=== PATIENT | male | born 1960 | race Caucasian/White ===

== ENCOUNTER 2019-12-29 19:56 | Emergency (ER) | payer OTHER ==
[~2019-12-29] VITALS: Ht 182.9 cm; Wt 89.6 kg
[2019-12-29] MEDS ORDERED: LAMO100T3 PO (20:13)
[2019-12-29 22:15] LABS: BASO % 0.2 % (0.0-1.0); EOS # 0.3 10^3/uL (0.0-0.5); EOS % 3.2 % (0.0-3.0); HEMATOCRIT 48.1 % (42.0-52.0); HEMOGLOBIN 16.1 g/dl (13.5-17.5); LYMPH # 2.1 10^3/uL (1.5-5.0); MEAN CORPUSCULAR HEMOGLOBIN 29.7 pg (27.0-33.0); MEAN CORPUSCULAR HGB CONC 33.5 g/dl (32.0-36.5); MEAN CORPUSCULAR VOLUME 88.6 fl (80.0-96.0); MONO # 0.5 10^3/uL (0.0-0.8); MONO % 6.2 % (0.0-5.0); NEUTROPHILS # 5.5 10^3/uL (1.5-8.5); PLATELET COUNT, AUTOMATED 255 10^3/uL (150-450); RED BLOOD COUNT 5.43 10^6/uL (4.30-6.10); WHITE BLOOD COUNT 8.4 10^3/uL (4.0-10.0)
[2019-12-29 22:37] LABS: ALBUMIN 3.9 GM/DL (3.2-5.2); ALT/SGPT 27 U/L (12-78); BILIRUBIN,DIRECT 0.3 MG/DL (0.0-0.2); BILIRUBIN,TOTAL 0.8 MG/DL (0.2-1.0); BLOOD UREA NITROGEN 15 MG/DL (7-18); CALCIUM LEVEL 9.4 MG/DL (8.8-10.2); CARBON DIOXIDE LEVEL 29 MEQ/L (21-32); CHLORIDE LEVEL 105 MEQ/L (98-107); CREATININE FOR GFR 1.28 MG/DL (0.70-1.30); GLOMERULAR FILTRATION RATE > 60.0 (>49); GLUCOSE, FASTING 104 MG/DL (70-100); LIPASE 207 U/L (73-393); POTASSIUM SERUM 4.7 MEQ/L (3.5-5.1); SODIUM LEVEL 141 MEQ/L (136-145); TOTAL PROTEIN 7.3 GM/DL (6.4-8.2)
[2019-12-29] MEDS ORDERED: ISOVUE-370 76% 100ML VIAL As Ordered ONE (23:53)
--- NOTE | 2019-12-30 00:50 | REPVR ---
PROCEDURE INFORMATION: Exam: CT Abdomen And Pelvis With Contrast Exam date and time: 12/29/2019 11:33 PM Age: 59 years old Clinical indication: Abdominal pain; Generalized; Prior surgery; Surgery date: 6+ months; Surgery type: Nephrectomy; Patient HX: HX renal cell; Additional info: Abd pain, n/v/d TECHNIQUE: Imaging protocol: Computed tomography of the abdomen and pelvis with intravenous contrast. Radiation optimization: All CT scans at this facility use at least one of these dose optimization techniques: automated exposure control; mA and/or kV adjustment per patient size (includes targeted exams where dose is matched to clinical indication); or iterative reconstruction. Contrast material: ISO; Contrast volume: 100 ml; Contrast route: INTRAVENOUS (IV); COMPARISON: No relevant prior studies available. FINDINGS: Lungs: Bibasilar atelectasis. Liver: Mild diffuse fatty infiltration of liver. Gallbladder and bile ducts: Tiny gallstones. No ductal dilatation. No pericholecystic fluid. Pancreas: Normal. No ductal dilation. Spleen: Splenic granulomas. Adrenals: Normal. No mass. Kidneys and ureters: Status post left nephrectomy. No residual tissue is seen in the left renal fossa. Right kidney is unremarkable. Stomach and bowel: Diverticulosis without any CT evidence of diverticulitis. Mildly prominent fluid-filled multiple left and mid small bowel loops with mucosal enhancement and mild surrounding inflammation. Proximal and distal small bowel loops are decompressed. Transitional point is seen in the right lower quadrant (series 201, image 79). Findings may represent early small bowel obstruction versus enteritis may be secondary to inflammation or infection, clinical correlation is recommended. Appendix: No evidence of appendicitis. Intraperitoneal space: Small amount of free fluid in the pelvis. Vasculature: Unremarkable. No abdominal aortic aneurysm. Lymph nodes: Unremarkable. No enlarged lymph nodes. Urinary bladder: Unremarkable as visualized. Reproductive: Unremarkable as visualized. Bones/joints: Mild degenerative changes. Soft tissues: Unremarkable. IMPRESSION: Diverticulosis without any CT evidence of diverticulitis. Mildly prominent fluid-filled multiple left and mid small bowel loops with mucosal enhancement and mild surrounding inflammation. Proximal and distal small bowel loops are decompressed. Transitional point is seen in the right lower quadrant (series 201, image 79). Findings may represent early small bowel obstruction versus enteritis may be secondary to inflammation or infection, clinical correlation is recommended. Status post left nephrectomy. No residual tissue is seen in the left renal fossa. Right kidney is unremarkable. Electronically signed by: Sugar Ryan On 12/30/2019 00:50:45 AM
[2019-12-30 02:46] VITALS: BP 113/81
== END 2019-12-30 02:52 | disposition home or self-care (01) ==
LOC: M ED 19:56
DX: K52.9 Noninfective gastroenteritis and colitis, unspecified (principal); R56.9 Unspecified convulsions; F17.210 Nicotine dependence, cigarettes, uncomplicated; Z79.899 Other long term (current) drug therapy
CPT/HCPCS: 74177; 80048; 80076; 81001; 83690; 85025; 99284; Q9967